=== PATIENT | female | born 1945 | race Caucasian/White ===

== ENCOUNTER 2018-08-23 06:25 | Observation (INO) | payer OTHER, MEDICAID ==
[2018-08-23] VITALS (15 sets, daily range): BP systolic 132–163; BP diastolic 70–94; PULSE 60–98; RESP 10–20; Ht 137.2 cm; Wt 66.3 kg
[~2018-08-23] VITALS: Ht 137.2 cm; Wt 66.3 kg
[~2018-08-23 06:25] MED LIST: BENA10TA4 PO; HYDR-3601 PO
[2018-08-23] MEDS ORDERED: CEFAZOLIN 2 GM/50 ML (PMX) 50 ML IVPB ONE (09:00)
[2018-08-23] MEDS ORDERED: SOD CHLORIDE 0.9% 1,000 ML IV SCH (09:00)
[2018-08-23] MEDS ORDERED: LETR2.5T PO (09:50)
[2018-08-23] MEDS ORDERED: BENA10TA4 PO (09:50)
[2018-08-23] MEDS ORDERED: ISOSULFAN BLUE 1% 5 ML INJ SC ONE (15:01)
--- NOTE | 2018-08-23 15:03 | PREAC ---
Date/Time of Note Date/Time of Note DATE: 08/23/18 TIME: 14:58 Anesthesia Eval and Record Evaluation Time Pre-Procedure Interview DATE: 08/23/18 TIME: 14:58 Age 73 Sex female NPO: 8 hrs Preoperative diagnosis breast cancer Planned procedure left localized partial mastectomy Past Medical History Past Medical History: Includes Cardio: HTN Musculoskeletal: Other (breast cancer ) Surgery & Anesthesia Issues No known issue Meds Anticoagulation: No Beta Son within 24 hr: No Reason Beta Son not given: Pt. not on B-Son Reported Medications Letrozole* (Letrozole*) 2.5 Mg Tablet, 2.5 MG PO QHS, TAB 08/23/18 Benazepril Hcl* (Benazepril Hcl*) 10 Mg Tablet, 10 MG PO DAILY, #30 TAB 08/23/18 Discontinued Reported Medications Benazepril Hcl* (Benazepril Hcl*) 10 Mg Tablet, 10 MG PO DAILY, #30 TAB 10/20/16 Discontinued Scripts Hydrocodone Bit-Acetaminophen (Hydrocodone Bit-APAP) 5-325MG Tablet, 1 TAB PO Q4H PRN for PAIN LEVEL 4-6, #20 TAB Prov:MARY BUCKNER 10/21/16 Current Medications Sodium Chloride 1,000 ml @ 75 mls/hr [id number] IV Last administered on 08/23/18at 13:25; Admin Dose 75 MLS/HR; Start 08/23/18 at 09:00; Stop 08/23/18 at 22:19 Meds reviewed: Yes Allergies Coded Allergies: No Known Allergies (Verified Allergy, Unknown, 08/23/18) Allergies Reviewed: Yes Labs/Studies Labs Reviewed: Reviewed by anesthesiologist Result Diagram: 08/23/18 1059 08/23/18 1059 Laboratory Tests 08/23/18 10:59 test: N/A Pre-procedure Exam Last vitals Vital Signs Date Temp Pulse Resp B/P (MAP) Pulse Ox O2 O2 Flow FiO2 Time Delivery Rate 08/23/18 97.9 98 18 163/75 100 Room Air 13:00 (104) Airway: Adequate mouth opening, Adequate thyromental dist Mallampati: Mallampati IV Teeth: Normal Lung: Normal Heart: Normal ASA Physical Status ASA physical status: 2 Emergency: None Pre-operative Attestations Prior to commencing anesthesia and surgery, the patient was re-evaluated, there was verification of: *The patient's identity *The results of appropriate recent lab work and preoperative vital signs *The above evaluation not changing prior to induction *Anesthetic plan, risk benefits, alternative and complications discussed with patient/family; questions answered; patient/family understands, accepts and wishes to proceed. ANIBAL ANDRES DO Aug 23, 2018 15:03
[2018-08-23] MEDS ORDERED: LIDOCAINE 2% (SDV) 5 ML INJ ONE (15:10)
[2018-08-23] MEDS ORDERED: PROPOFOL 20 ML ONE (15:10)
[2018-08-23] MEDS ORDERED: ETOMIDATE 20 MG INJ ONE (15:10)
[2018-08-23] MEDS ORDERED: MIDAZOLAM 1 MG/ML 2 ML INJ ONE (15:10)
[2018-08-23] MEDS ORDERED: LABETALOL HCL 20MG INJ ONE (15:22)
[2018-08-23] MEDS ORDERED: CEFAZOLIN 1 GM INJ ONE (15:24)
[2018-08-23] MEDS ORDERED: LABETALOL HCL 20MG INJ IV PRN (15:30)
[2018-08-23] MEDS ORDERED: HYDROmorphONE 1 MG/5 ML IV SYRINGE IV PRN ×3 (15:30)
[2018-08-23] MEDS ORDERED: hydrALAzine 20 MG INJ IV PRN (15:30)
--- NOTE | 2018-08-23 16:21 | SIPON ---
Date/Time of Note Date/Time of Note DATE: 08/23/18 TIME: 16:19 Operative Report Preoperative Diagnosis Invasive cancer left breast Postoperative Diagnosis Same Operation/Procedure Performed Left needle directed partial mastectomy Surgeon see signature line quality assistant Dr Angel Anesthesia: general Estimated blood loss: 10 - 50 ml's Transfusion Required none Specimen Left partial mastectomy specimen and axillary lymph nodes Grafts/Implants none Complications none RADHIKA WEST MD Aug 23, 2018 16:21
[2018-08-23] MEDS ORDERED: morphine 2 MG INJ IV PRN (16:30)
[2018-08-23] MEDS ORDERED: ACETAMINOPHEN 1000MG/100ML IV 100 ML IVPB PRN (16:30)
--- NOTE | 2018-08-23 16:55 | PAC ---
Date/Time of Note Date/Time of Note DATE: 08/23/18 TIME: 16:55 Post-Anesthesia Notes Post-Anesthesia Note Last documented vital signs Vital Signs Date Temp Pulse Resp B/P (MAP) Pulse Ox O2 O2 Flow FiO2 Time Delivery Rate 08/23/18 98 80 18 150/63 100 Room Air 1655 Activity: WNL Respiratory function: WNL Cardiovascular function: WNL Mental status: Baseline Pain reasonably controlled: Yes Hydration appropriate: Yes Nausea/Vomiting absent: Yes ANIBAL ANDRES DO Aug 23, 2018 16:55
--- NOTE | 2018-08-23 18:12 | HP ---
Date/Time of Note Date/Time of Note DATE: 08/23/18 TIME: 18:06 Assessment/Plan VTE Prophylaxis Risk score (from Ns)>0 risk: 4 SCD applied (from Ns): Yes Pharmacological prophylaxis: NA/contraindicated Pharm contraindication: surgical contra Lines/Catheters IV Catheter Type (from Nrsg): Peripheral IV Assessment/Plan Assessment/Plan -Invasive cancer left breast, status post left needle directed partial mastectomy by Dr. Vázquez. Continue IV fluids and postoperative antibiotic. Cont inue [place] and morphine as needed for pain and Zofran as needed for nausea. -Hypertension, continue lisinopril. -History of invasive cancer of the right breast, status post partial mastectomy 2 years ago. Patient is currently on letrozole. Further recommendations based on clinical course. Plan of care discussed with Dr. Jones. Result Diagram: 08/23/18 1059 08/23/18 1059 Results 24hrs Laboratory Tests Test 08/23/18 10:59 White Blood Count 4.8 Red Blood Count 4.06 L Hemoglobin 12.9 Hematocrit 38.4 Mean Corpuscular Volume 94.6 Mean Corpuscular Hemoglobin 31.8 Mean Corpuscular Hemoglobin Concent 33.6 Red Cell Distribution Width 12.4 Platelet Count 227 Mean Platelet Volume 10.3 Immature Granulocytes % 0.200 Neutrophils % 59.6 Lymphocytes % 24.4 Monocytes % 11.1 H Eosinophils % 3.6 Basophils % 1.1 Nucleated Red Blood Cells % 0.0 Immature Granulocytes # 0.010 Neutrophils # 2.8 Lymphocytes # 1.2 Monocytes # 0.5 Eosinophils # 0.2 Basophils # 0.1 Nucleated Red Blood Cells # 0.0 Prothrombin Time 12.7 Prothrombin Time Ratio 1.0 INR International Normalized Ratio 0.94 Activated Partial Thromboplast Time 28.5 Sodium Level 146 H Potassium Level 4.4 Chloride Level 109 Carbon Dioxide Level 28 Anion Gap 9 Blood Urea Nitrogen 13 Creatinine 0.68 Est Glomerular Filtrat Rate mL/min Glucose Level 102 Calcium Level 9.5 Total Bilirubin 0.6 Direct Bilirubin 0.00 Indirect Bilirubin 0.6 Aspartate Amino Transf (AST/SGOT) 28 Alanine Aminotransferase (ALT/SGPT) 21 Alkaline Phosphatase 87 Total Protein 6.8 Albumin 4.1 Globulin 2.70 Albumin/Globulin Ratio 1.51 HPI/ROS Admit Date/Time Admit Date/Time Aug 23, 2018 at 16:22 Hx of Present Illness The patient is a 73-year-old female with history of hypertension and right breast cancer. Patient underwent right partial mastectomy with resection of the nipple areolar complex and axillary dissection in October [address] Vázquez for ductal carcinoma in situ. Patient underwent for mammogram and subsequent core biopsy of left breast recently and was diagnosed with invasive cancer of the left breast. Patient was brought to the hospital and underwent left needle directed partial mastectomy. Postoperatively patient experiencing m oderate pain and patient is admitted for further evaluation and management. ROS 12 point review of system is negative except for what mentioned in HPI. PMH/Family/Social Past Medical History Medical History: hypertension Medications Current Medications Sodium Chloride 1,000 ml @ 75 mls/hr [id number] IV Last administered on 08/23/18at 13:25; Admin Dose 75 MLS/HR; Start 08/23/18 at 09:00; Stop 08/23/18 at 22:19 Hydromorphone HCl (Dilaudid) 0.2 mg PACU PRN IV MILD PAIN 1-3; Start 08/23/18 at 15:30; Stop 08/23/18 at 21:00 Hydromorphone HCl (Dilaudid) 0.4 mg PACU PRN IV MOD PAIN 4-6 Last administered on 08/23/18at 16:59; Admin Dose 0.4 MG; Start 08/23/18 at 15:30; Stop 08/23/18 at 21:00 Hydromorphone HCl (Dilaudid) 0.6 mg PACU PRN IV SEVERE PAIN 7-10; Start 08/23/18 at 15:30; Stop 08/23/18 at 21:00 Labetalol HCl (Labetalol) 5 mg PACU ORDER PRN IV HIGH BLOOD PRESSURE; Start 08/23/18 at 15:30; Stop 08/23/18 at 21:00 Hydralazine HCl (Apresoline) 5 mg PACU ORDER PRN IV HIGH BLOOD PRESSURE; Start 08/23/18 at 15:30; Stop 08/23/18 at 21:00 Ondansetron HCl (Zofran Inj) 4 mg Q6H PRN IV NAUSEA AND/OR VOMITING; Start 08/23/18 at 16:30 Potassium Chloride/Dextrose/ Sod Cl 1,000 ml @ 125 mls/hr Q8H IV ; Start 08/23/18 at 16:21 Morphine Sulfate (morphine) 2 mg Q1H PRN IV PAIN; Start 08/23/18 at 16:30 Acetaminophen 100 ml @ 400 mls/hr Q6H PRN IVPB PAIN; Start 08/23/18 at 16:30; Stop 08/24/18 at 16:29 Coded Allergies: No Known Allergies (Verified Allergy, Unknown, 08/23/18) Past Surgical History Past Surgical Hx: other (Status post right partial mastectomy in October 2016) Family History Significant Family History: no pertinent family hx Social History Alcohol Use: rarely Smoking Status: Never smoker Drug Use: none Exam/Review of Systems Vital Signs Vitals Vital Signs Date Temp Pulse Resp B/P (MAP) Pulse Ox O2 O2 Flow FiO2 Time Delivery Rate 08/23/18 72 10 148/80 100 Nasal 17:51 (102) Cannula 08/23/18 3.0 17:11 08/23/18 98.5 16:56 Intake and Output 08/22/18 08/22/18 08/23/18 1515:00 23:00 07:00 IntakeIntake Total 1500 ml BalanceBalance 1500 ml Exam Constitutional: alert, oriented Head: normocephalic Neck: supple Respiratory: clear to auscultation Cardiovascular: nl pulses Gastrointestinal: soft, non-tender Musculoskeletal: nl extremities to inspection Extremities: normal pulses Neurological: nl mental status Skin: nl turgor, other (Status post left partial mastectomy, left axillary JPs) MARY BUCKNER Aug 23, 2018 18:12
[2018-08-23] MEDS: D5W-0.45 NACL + KCL 20 MEQ 1,000 ML IV SCH (18:22)
[2018-08-23] MEDS: ONDANSETRON 4 MG INJ IV PRN ×2 (18:29→21:44)
[2018-08-23] MEDS ORDERED: HYDROCODONE/APAP (5/325) TAB PO PRN (18:30)
--- NOTE | 2018-08-23 19:45 | OPR ---
DATE OF OPERATION: 08/23/2018 PREOPERATIVE DIAGNOSIS: Invasive cancer, left breast. POSTOPERATIVE DIAGNOSIS: Invasive cancer, left breast. PROCEDURE: Left needle-directed partial mastectomy and axillary dissection utilizing sentinel lymph node technique. ANESTHESIA: General. ANESTHESIOLOGIST: Simon Olvera DO SURGEON: Robert Vázquez MD HOT IRON WORKER: Robert Angel MD INDICATIONS FOR PROCEDURE: The patient is known to me. I previously treated her for invasive cancer of her right breast. She was in a high risk screening program and underwent mammography of the left breast and was found to have a suspicious lesion. Subsequent workup and biopsy confirmed invasive c ancer. She was counseled as to need for surgery. She consented and was scheduled for surgery. DESCRIPTION OF PROCEDURE: On the morning of surgery, the patient presented to [facility] where she underwent localization of the lesion performed by attending radiologist, Dr. Ezequiel Jung. Subsequently, she was brought to the operating theater, placed under general a nesthesia. The left breast and axillary region regions were prepped and draped in usual sterile fash ion. Approximately 3 to 4 mL of 1% Lymphazurin blue dye was then injected peritumorally. The breast was gently massaged for approximately 12 minutes. At this point, a 3 to 4 cm incision was made in t he left axillary hairline. Subcutaneous tissue was dissected with cautery down through the clavipect oral fascia. There is abundant amount of adipose tissue noted. After extensive searching, a definit e dye-stained lymphatic could not be identified; therefore Dr. Vázquez palpated the axilla. There was a relatively large palpable node associated with several other lymph nodes. This palpable node and t he additional lymph nodes were then resected using the LigaSure device. Intraoperative analysis perf ormed by Dr. Fidel Guerra took place and he confirmed the presence of several lymph nodes. The lar gest one was evaluated. There was no definite evidence of metastatic tumor; therefore, no further ly mph nodes were taken. The wound was irrigated. Minimal bleeding was controlled with cautery. A #10 Mauritian Cheko-Otoole drain was then brought through the left mid axillary line, cut to size, laid wi thin the axilla. It was secured in place with 2-0 nylon suture in the standard fashion. The skin wa s then reapproximated with 4-0 Vicryl suture in subcuticular fashion. Attention was then directed to performing the partial mastectomy. A curvilinear incision was made in the upper inner quadrant of t he breast in the region of the previous placed localization wire. Subcutaneous tissue was dissected with cautery. Skin edges were elevated with skin hooks and wide circumferential dissection of the ti ssue associated with the wire then took placed using cautery. Specimen was removed and sent for radi ographic confirmation of capture. Capture was confirmed. Specimen was then sent for permanent patho logic analysis. The wound was irrigated. Minimal bleeding was controlled with cautery. Skin was th en reapproximated with a deep dermal layer of 4-0 Vicryl sutures, followed by final skin approximatio n with 5-0 PDS sutures in subcuticular fashion. Dermabond was then applied to both incisions. The p atient tolerated the procedure well. The estimated blood loss was approximately 40 mL. There were n o complications. The patient was transported in stable condition to recovery room where circumferent ial compression dressing was applied. Dictated By: ROBERT VÁZQUEZ MD TL/LORENA Conf#: [id number] DID#: [id number] CC: JESSIE CHIANG MD;*EndCC*
[2018-08-23] MEDS ORDERED: LETROZOLE 2.5 MG TAB PO SCH (21:00)
[2018-08-24] MEDS: D5W-0.45 NACL + KCL 20 MEQ 1,000 ML IV SCH ×3 (00:41→11:10)
[2018-08-24 02:02] VITALS: BP 108/65; PULSE 68; RESP 18
--- NOTE | 2018-08-24 06:15 | PN ---
Date/Time of Note Date/Time of Note DATE: 08/24/18 TIME: 06:15 Assessment/Plan VTE Prophylaxis Risk score (from Nsg)>0 risk: 6 SCD applied (from Nsg): Yes Lines/Catheters IV Catheter Type (from Nrsg): Peripheral IV Urinary Cath still in place: No Assessment/Plan Assessment/Plan -Invasive cancer left breast, status post left needle directed partial mastectomy by Dr. Vázquez. Continue IV fluids and postoperative antibiotic. Continue [place] and morphine as needed for pain and Zofran as needed for nausea. -Hypertension, continue lisinopril. -History of invasive cancer of the right breast, status post partial mastectomy 2 years ago. Patient is currently on letrozole. Further recommendations based on clinical course. Plan of care discussed with Dr. Jones. Result Diagram: 08/24/18 0437 08/24/18 0436 Results 24hrs Laboratory Tests Test 08/23/18 10:59 08/24/18 04:36 08/24/18 04:37 White Blood Count 4.8 6.6 # Red Blood Count 4.06 L 3.65 L Hemoglobin 12.9 11.6 L Hematocrit 38.4 35.6 L Mean Corpuscular Volume 94.6 97.5 Mean Corpuscular Hemoglobin 31.8 31.8 Mean Corpuscular Hemoglobin Concent 33.6 32.6 Red Cell Distribution Width 12.4 12.5 Platelet Count 227 190 Mean Platelet Volume 10.3 11.1 H Immature Granulocytes % 0.200 0.500 H Neutrophils % 59.6 67.3 Lymphocytes % 24.4 16.6 Monocytes % 11.1 H 12.7 H Eosinophils % 3.6 2.4 Basophils % 1.1 0.5 Nucleated Red Blood Cells % 0.0 0.0 Immature Granulocytes # 0.010 0.030 Neutrophils # 2.8 4.5 Lymphocytes # 1.2 1.1 Monocytes # 0.5 0.8 Eosinophils # 0.2 0.2 Basophils # 0.1 0.0 Nucleated Red Blood Cells # 0.0 0.0 Prothrombin Time 12.7 Prothrombin Time Ratio 1.0 INR International Normalized Ratio 0.94 Activated Partial Thromboplast Time 28.5 Sodium Level 146 H 141 Potassium Level 4.4 4.3 Chloride Level 109 106 Carbon Dioxide Level 28 27 Anion Gap 9 8 Blood Urea Nitrogen 13 12 Creatinine 0.68 0.65 Est Glomerular Filtrat Rate mL/min Glucose Level 102 125 Calcium Level 9.5 8.3 L Total Bilirubin 0.6 Direct Bilirubin 0.00 Indirect Bilirubin 0.6 Aspartate Amino Transf (AST/SGOT) 28 Alanine Aminotransferase (ALT/SGPT) 21 Alkaline Phosphatase 87 Total Protein 6.8 Albumin 4.1 Globulin 2.70 Albumin/Globulin Ratio 1.51 Exam/Review of Systems Exam Vitals Vital Signs Date Temp Pulse Resp B/P (MAP) Pulse Ox O2 O2 Flow FiO2 Time Delivery Rate 08/24/18 97.8 68 18 108/65 97 02:02 (79) 08/23/18 Room Air 18:34 08/23/18 3.0 17:11 Intake and Output 08/23/18 08/23/18 08/24/18 1515:00 23:00 07:00 IntakeIntake Total 200 ml 750 ml OutputOutput Total 1222 ml 35 ml BalanceBalance -1022 ml 715 ml Results Results 24hrs Laboratory Tests Test 08/23/18 10:59 08/24/18 04:36 08/24/18 04:37 White Blood Count 4.8 6.6 # Red Blood Count 4.06 L 3.65 L Hemoglobin 12.9 11.6 L Hematocrit 38.4 35.6 L Mean Corpuscular Volume 94.6 97.5 Mean Corpuscular Hemoglobin 31.8 31.8 Mean Corpuscular Hemoglobin Concent 33.6 32.6 Red Cell Distribution Width 12.4 12.5 Platelet Count 227 190 Mean Platelet Volume 10.3 11.1 H Immature Granulocytes % 0.200 0.500 H Neutrophils % 59.6 67.3 Lymphocytes % 24.4 16.6 Monocytes % 11.1 H 12.7 H Eosinophils % 3.6 2.4 Basophils % 1.1 0.5 Nucleated Red Blood Cells % 0.0 0.0 Immature Granulocytes # 0.010 0.030 Neutrophils # 2.8 4.5 Lymphocytes # 1.2 1.1 Monocytes # 0.5 0.8 Eosinophils # 0.2 0.2 Basophils # 0.1 0.0 Nucleated Red Blood Cells # 0.0 0.0 Prothrombin Time 12.7 Prothrombin Time Ratio 1.0 INR International Normalized Ratio 0.94 Activated Partial Thromboplast Time 28.5 Sodium Level 146 H 141 Potassium Level 4.4 4.3 Chloride Level 109 106 Carbon Dioxide Level 28 27 Anion Gap 9 8 Blood Urea Nitrogen 13 12 Creatinine 0.68 0.65 Est Glomerular Filtrat Rate mL/min Glucose Level 102 125 Calcium Level 9.5 8.3 L Total Bilirubin 0.6 Direct Bilirubin 0.00 Indirect Bilirubin 0.6 Aspartate Amino Transf (AST/SGOT) 28 Alanine Aminotransferase (ALT/SGPT) 21 Alkaline Phosphatase 87 Total Protein 6.8 Albumin 4.1 Globulin 2.70 Albumin/Globulin Ratio 1.51 Medications Medication Current Medications Ondansetron HCl (Zofran Inj) 4 mg Q6H PRN IV NAUSEA AND/OR VOMITING Last administered on 08/23/18at 21:44; Admin Dose 4 MG; Start 08/23/18 at 16:30 Potassium Chloride/Dextrose/ Sod Cl 1,000 ml @ 125 mls/hr Q8H IV Last administered on 08/24/18at 00:41; Admin Dose 125 MLS/HR; Start 08/23/18 at 16:21 Morphine Sulfate (morphine) 2 mg Q1H PRN IV PAIN; Start 08/23/18 at 16:30 Acetaminophen 100 ml @ 400 mls/hr Q6H PRN IVPB PAIN; Start 08/23/18 at 16:30; Stop 08/24/18 at 16:29 Benazepril HCl (Lotensin) 10 mg DAILY PO ; Start 08/24/18 at 09:00 Letrozole (Femara) 2.5 mg QHS PO Last administered on 08/23/18at 21:46; Admin Dose 2.5 MG; Start 08/23/18 at 21:00 Acetaminophen/ Hydrocodone Bitart ([place] (5/325)) 1 tab Q4H PRN PO MODERATE PAIN LEVEL 4-6 Last administered on 08/23/18at 21:44; Admin Dose 1 TAB; Start 08/23/18 at 18:30 BRIDGETTE NUR Aug 24, 2018 06:15
--- NOTE | 2018-08-24 07:34 | RADRPT ---
Vent Rate: 81 bpm RR Interval: 744 msec ND Interval: 141 msec QRS Duration: 88 msec QT Interval: 419 msec QTC Interval: 486 msec P-R-T [place]: 45 - 3 - 63 degrees Sinus rhythm...normal P axis, V-rate 50- 99 Electronically Signed By: Shiva Cavazos
[2018-08-24 07:50] VITALS: BP 154/69; RESP 18
[2018-08-24] MEDS ORDERED: BENAZEPRIL 10 MG TAB PO SCH (09:00)
== END 2018-08-24 14:57 | disposition home or self-care (01) ==
LOC: SDS 06:25 → INTOOBSV 16:22 → SDS 16:22 → REC 16:22 → MS1 18:20
PROVIDERS: ADMIT Surgery Surgical Oncology; ATTEND Surgery Surgical Oncology
DX: C50.212 Malignant neoplasm of upper-inner quadrant of left female breast (principal); Z17.1 Estrogen receptor negative status [ER-]; N60.92 Unspecified benign mammary dysplasia of left breast; I10 Essential (primary) hypertension
CPT/HCPCS: 19301; 38525; 38900; 71045; 80048; 80053; 84703; 85025; 85610; 85730; 88307; 88309; 93005; G0378; J0690; J1170; J2250; J2405; J3010; J3480; Q9968; 99217

== ENCOUNTER 2018-08-30 23:09 | Emergency (ER) | payer OTHER, MEDICAID ==
[~2018-08-30] VITALS: Ht 144.8 cm; Wt 67.0 kg
[~2018-08-30 23:09] MED LIST changes: -HYDR-3601 PO; +LETR2.5T PO
[2018-08-30 23:39] VITALS: Ht 144.8 cm; Wt 67.0 kg
[2018-08-30] MEDS ORDERED: SODIUM CHLORIDE 0.9% 1L BAG IV* STA (23:51)
[2018-08-30] MEDS ORDERED: KETOROLAC 15 MG INJ IV STA (23:51)
[2018-08-31] MEDS ORDERED: ACETAMINOPHEN 325 MG TAB PO ONE
[2018-08-31] MEDS ORDERED: VANCOMYCIN 1 GM (PMX) 250 ML IVPB ONE (02:30)
--- NOTE | 2018-08-31 02:31 | ERD ---
ER Documentation Chief Complaint Chief Complaint L flank pain radiating to L back, fever, after Sx 1 wk ago HPI This is a 73-year-old female with a past medical history of breast cancer status post distant right partial mastectomy and a recent left partial mastectomy performed [address] Vázquez, currently with 2 DYLAN drains inserted into the left breast is presenting today with pain, mild erythema, induration and slight purulence around the DYLAN drainage sites. The patient does endorse 1 day of waxing and waning fever. She denies chills. She does not endorse any alleviating or exacerbating factors. The patient has had no headache or vision changes. The patient does not endorse neck or back pain. The patient denies lightheadedness or dizziness. The patient has had no chest pain or trouble breathing. The patient denies nausea or vomiting. The patient denies abdominal pain. The patient denies changes to bowel movements or urination. The patient has had no focal deficits. The patient has had no weakness or numbness or tingling to the face or extremities. ROS All systems reviewed and are negative except as per history of present illness. Medications Home Meds Reported Medications Letrozole* (Letrozole*) 2.5 Mg Tablet, 2.5 MG PO QHS, TAB 08/23/18 Benazepril Hcl* (Benazepril Hcl*) 10 Mg Tablet, 10 MG PO DAILY, #30 TAB 08/23/18 Allergies Allergies: Coded Allergies: No Known Allergies (Verified Allergy, Unknown, 08/23/18) PMhx/Soc History of Surgery: Yes (rt hand sx, rt breast ca, LEFT BREAST TUMOR REMOVAL) Anesthesia Reaction: No Hx Neurological Disorder: No Hx Respiratory Disorders: No Hx Cardiac Disorders: Yes (Hypertension) Hx Psychiatric Problems: No Hx Miscellaneous Medical Probl: No Hx Alcohol Use: Yes (occational) Hx Substance Use: No Hx Tobacco Use: No Smoking Status: Never smoker FmHx Family History: No diabetes Physical Exam Vitals Vital Signs Date Temp Pulse Resp B/P (MAP) Pulse Ox O2 O2 Flow FiO2 Time Delivery Rate 08/31/18 98.2 86 19 109/58 Room Air 02:12 (75) 08/31/18 100.6 00:05 08/30/18 100.6 106 18 149/97 93 23:39 (114) Physical Exam Const: No acute distress Head: Atraumatic Eyes: Normal Conjunctiva ENT: Normal External Ears, Nose and Mouth. Neck: Full range of motion. No meningismus. Resp: Clear to auscultation bilaterally Cardio: Regular rate and rhythm, no murmurs Chest: [address] the left breast, still draining serosanguineous fluid with minimal erythema and induration around the site. There is an area around 1 DYLAN drain that appears to be granulation tissue. Abd: Soft, non tender, non distended. Normal bowel sounds Skin: No petechiae or rashes Back: No midline or flank tenderness Ext: No cyanosis, or edema Neur: Awake and alert Psych: Normal Mood and Affect Result Diagram: 08/30/18 2358 08/30/18 2358 Results 24 hrs Laboratory Tests Test 08/30/18 23:56 08/30/18 23:58 08/31/18 02:06 POC Venous Lactate 1.0 mmol/L White Blood Count 9.1 10^3/ul Red Blood Count 4.06 10^6/ul Hemoglobin 13.0 g/dl Hematocrit 38.2 % Mean Corpuscular Volume 94.1 fl Mean Corpuscular Hemoglobin 32.0 pg Mean Corpuscular 34.0 g/dl Hemoglobin Concent Red Cell Distribution Width 12.2 % Platelet Count 246 10^3/UL Mean Platelet Volume 10.4 fl Immature Granulocytes % 0.400 % Neutrophils % 72.9 % Lymphocytes % 13.5 % Monocytes % 10.7 % Eosinophils % 2.0 % Basophils % 0.5 % Nucleated Red Blood Cells % 0.0 /100WBC Immature Granulocytes # 0.040 10^3/ul Neutrophils # 6.6 10^3/ul Lymphocytes # 1.2 10^3/ul Monocytes # 1.0 10^3/ul Eosinophils # 0.2 10^3/ul Basophils # 0.1 10^3/ul Nucleated Red Blood Cells # 0.0 10^3/ul Prothrombin Time 13.7 Sec Prothrombin Time Ratio 1.1 INR International 1.04 Normalized Ratio Activated Partial Thromboplast 28.2 Sec Time Urine Color COLORLESS Urine Clarity CLEAR Urine pH 7.0 Urine Specific [place] 1.003 Urine Ketones NEGATIVE mg/dL Urine Nitrite NEGATIVE mg/dL Urine Bilirubin NEGATIVE mg/dL Urine Urobilinogen NEGATIVE mg/dL Urine Leukocyte Esterase TRACE Shelly/ul Urine Microscopic RBC 0 /HPF Urine Microscopic WBC 0 /HPF Urine Hemoglobin 2+ mg/dL Urine Glucose NEGATIVE mg/dL Urine Total Protein NEGATIVE mg/dl Sodium Level 142 mmol/L Potassium Level 3.8 mmol/L Chloride Level 104 mmol/L Carbon Dioxide Level 26 mmol/L Anion Gap 12 Blood Urea Nitrogen 14 mg/dl Creatinine 0.75 mg/dl Est Glomerular Filtrat mL/min Rate mL/min Glucose Level 116 mg/dl Calcium Level 9.7 mg/dl Total Bilirubin 0.6 mg/dl Direct Bilirubin 0.00 mg/dl Indirect Bilirubin 0.6 mg/dl Aspartate Amino Transf (AST/SGOT) 27 IU/L Alanine 17 IU/L Aminotransferase (ALT/SGPT) Alkaline Phosphatase 100 IU/L Troponin I < 0.012 ng/ml Total Protein 7.2 g/dl Albumin 4.4 g/dl Globulin 2.80 g/dl Albumin/Globulin Ratio 1.57 Lactic Acid Level 0.7 mmol/L Current Medications Medications Dose Sig/Nisha Start Time Status Last (Trade) Ordered Route PRN Stop Time Admin Dose Reason Admin Sodium 2,010 ml BOLUS OVER 2 08/30/18 DC 08/31/18 Chloride HOURS STAT 23:51 00:05 (NS) IV* 08/30/18 23:53 Ketorolac 15 mg ONCE STAT 08/30/18 DC 08/31/18 Tromethamine IV 23:51 00:05 (Toradol) 08/30/18 23:53 650 mg ONCE ONCE 08/31/18 DC 08/31/18 Acetaminophen PO 00:00 00:05 (Tylenol 08/31/18 00:01 Tab) Vancomycin 250 ml @ ONCE ONCE 08/31/18 HCl 125 mls/hr IVPB 02:30 08/31/18 04:29 Procedures/MDM MDM The patient's presentation warrants further investigation. Previous medical records, if available, were reviewed. LABS The patient's laboratory testing was obtained and reviewed. No emergent treatment was required unless described below. CBC: No E/o systemic infection or severe anemia or thrombocytopenia Chemistry: No E/o severe acidosis or alkalosis or renal failure or liver disease or diabetic ketoacidosis PT/INR: No E/o significant coagulopathy Lactate: No E/o severe sepsis Troponin: No E/o acute ischemia Urine: No E/o acute infection or hematuria EKG EKG read by me: Rate/Rhythm: Regular rate and rhythm at a rate of 93 bpm Intervals: Normal [place]: Normal Impression: No evidence of acute ischemia or arrhythmia IMAGING Imaging and Radiology interpretation reviewed. CXR FINDINGS: Mediastinum: There is calcification of the wall of the thoracic aorta. Heart size: Normal Pulmonary vasculature: No visible engorgement. Lungs: Clear. Costophrenic sulci: Clear. Bony structures: Grossly unremarkable for age. IMPRESSION: 1. Atherosclerosis of the thoracic aorta. 2. Otherwise, radiographically unremarkable chest. Electronically viewed and signed by Randolph Arce Physician on 08/31/2018 00:54 TREATMENT/DISPOSITION The patient symptoms are concerning for the beginning stages of possible cellulitis around her DYLAN sites. The patient was concerned about purulent discharge, but I suspect that this is related to granulation tissue. I have decreased suspicion for abscess at this time. The patient was febrile with a mild tachycardia when she first arrived. A sepsis work-up was completed. The patient has no leukocytosis or lactic acidosis. There is no evidence of endorgan damage. The patient is not septic, and I do not feel the patient requires a full septic work-up. The patient was given IV fluids in the emergency department. She was also given Toradol and Tylenol for her temperature. The patient was given a dose of vancomycin in the emergency department. That said, I do feel that the patient may continue treatment in an outpatient setting. The patient will be instructed to follow-up with her surgeon, Dr. Vázquez. She should call the office tomorrow to schedule an appointment. DISCHARGE Upon reevaluation of the patient, symptoms have improved. No emergent diagnoses were identified. At this time, I feel that the patient stable for discharge. The patient was instructed to follow-up with a primary care physician in 1-3 days. The patient will be given strict precautions with which to return to the emergency department. Prescriptions: Keflex, Bactrim The patient's blood pressure was elevated at greater than 120/80 while in the emergency department. The patient was otherwise stable with no evidence of hypertensive urgency or emergency. The patient does not require admission for blood pressure control. I have discussed with the patient the risks of hypertension. I have instructed the patient to return to the ER for any new or worsening symptoms including chest pain, shortness of breath, headache, blurred vision, confusion, nausea, vomiting or LOC. I have advised the patient to follow up with the primary care physician for outpatient monitoring and treatment for hypertension in 1-3 days. Disclaimer: Inadvertent spelling and grammatical errors are likely due to EHR/dictation software use and do not reflect on the overall quality of patient care. Note that the electronic time recorded on this note does not necessarily reflect the actual time of the patient encounter. Departure Diagnosis: Primary Impression: Cellulitis of left breast Additional Impressions: Postoperative complication Surgical complication system/body Area: musculoskeletal system Surgical complication type: unspecified Procedure type: musculoskeletal Qualified Codes: M96.89 - Other intraoperative and postprocedural complications and disorders of the musculoskeletal system Fever Fever type: unspecified Qualified Codes: R50.9 - Fever, unspecified Tachycardia Condition: Stable Patient Instructions: Post Op Wound Check, Infection, Fever Control (Adult) Additional Instructions: Please call the office of Dr. Vázquez first thing tomorrow morning to schedule a follow-up appointment in the next 1 to 2 days. Thank you for for coming to [facility] for your care today. Please ask your nurse or provider if you have questions about your care today and do not leave until all your questions have been answered. Please use any medications given as directed and follow-up with your doctor (or the doctor you were referred to) in the next 1-3 days. If you do not have a primary care doctor you may follow up at the [facility] (listed below). You may also use motrin and tylenol as needed for fever and/or pain unless instructed otherwise by your provider or nurse. Indications for more urgent follow-up have been discussed, but you may return to the Emergency Department at ANY time for any worrisome or worsening symptoms. If you have abdominal pain, please know that no test or exam you received is perfect and you should follow up within 8 hours for continued pain. If you had any imaging studies today, such as an X-Ray or CT Scan, these studies will be reviewed later by a radiologist. You will be called if there are important findings that were not identified today, so make sure the contact information you provided at registration is correct. If you received any narcotic pain control medicine today, such as Vicodin, Morphine or Dilaudid, your coordination and judgment may be affected for a number of hours. Please do not drive or operate heavy machinery, and you may want someone to assist you at home. If you were given a prescription for narcotic medication, be aware that it is very addictive- use sparingly and only if necessary. PLEASE SEEK FURTHER EVALUATION AND MANAGEMENT AT YOUR DOCTORS OFFICE WITHIN THE NEXT 1-3 DAYS. IT IS YOUR RESPONSIBILITY TO MAKE AN APPOINTMENT FOR FOLOW-UP CARE. IF YOU HAVE A PRIMARY DOCTOR, PLEASE CALL THEIR OFFICE TO SCHEDULE AN APPOINTMENT FOR FOLLOW UP. IF YOU DO NOT HAVE A PRIMARY DOCTOR YOU CAN CALL OUR PHYSICIAN REFERRAL HOTLINE AT IF YOU CAN NOT AFFORD TO SEE A PHYSICIAN YOU CAN CHOSE FROM THE FOLLOWING [facility]: [facility] [address] [facility]. [facility] [address] [facility] [facility] [address] [facility] [facility] [address] [facility]. [facility] [address] [facility]. [facility]. [address] JOHN CALLOWAY MD Aug 31, 2018 02:30
[2018-08-31] MEDS ORDERED: SULF1TAB31 PO (02:41)
[2018-08-31] MEDS ORDERED: CEPH-443 PO (02:41)
[2018-08-31] MEDS ORDERED: IBUP-1542 PO (02:41)
[2018-08-31 05:10] VITALS: BP 169/67; PULSE 78; RESP 14
== END 2018-08-31 05:10 | disposition home or self-care (01) ==
LOC: E/R 23:09
DX: N61.0 Mastitis without abscess (principal); I10 Essential (primary) hypertension; M96.89 Other intraoperative and postprocedural complications and disorders of the musculoskeletal system; R00.0 Tachycardia, unspecified; Z85.3 Personal history of malignant neoplasm of breast
CPT/HCPCS: 36415; 71045; 80053; 81001; 83605; 84484; 85025; 85610; 85730; 87040; 87086; 93005; 96365; 96366; 96375; 99285; J1885; J3370; J7030